=== PATIENT | male | born 1980 | race American Indian/Alaskan Native ===

== ENCOUNTER 2020-02-13 14:11 | Emergency (ER) | payer SELFPAY ==
[2020-02-13 14:27] VITALS: BP 161/111
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
== END 2020-02-13 19:07 | disposition home or self-care (01) ==
LOC: ED 14:11
DX: R03.0 Elevated blood-pressure reading, without diagnosis of hypertension (principal); S13.9XXA Sprain of joints and ligaments of unspecified parts of neck, initial encounter; F17.200 Nicotine dependence, unspecified, uncomplicated; Z79.899 Other long term (current) drug therapy; V49.59XA Passenger injured in collision with other motor vehicles in traffic accident, initial encounter; Y93.89 Activity, other specified; Y92.89 Other specified places as the place of occurrence of the external cause; Y99.8 Other external cause status
CPT/HCPCS: 72040; 99283